=== PATIENT | female | born 1970 | race Caucasian/White ===

== ENCOUNTER 2020-12-24 14:32 | Observation (INO) | payer MEDICARE, OTHER ==
[2020-12-24] MEDS ORDERED: Romazicon 0.5 MG/5 ML Injection IV ONE ×3 (14:55→15:47)
[2020-12-24] MEDS ORDERED: Zofran 4 MG/2 ML VIAL IV ONE (14:55)
--- NOTE | 2020-12-24 14:55 | ERPHSYRPT ---
- History of Present Illness Time Seen by Provider: 12/24/20 14:40 Source: EMS Exam Limitations: clinical condition, intoxication Physician History: This 50-year-old white female arrives via EMS after family was found the patient unresponsive but breathing on her own. It is unclear to them whether or not the patient had an accidental or intentional overdose presumably of her Xanax. Patient arrives breathing on her own but unresponsive. Her room air oxygen level is 90%. She was then placed on 4 L oxygen via nasal cannula and her room air oxygen level was 98%. Her blood pressure had a systolic blood pressure of approximately 109. Her heart rate was in the 80s and a normal sinus rhythm. There was no other history obtainable at the time of this evaluation/ex amination. Timing/Duration: today Severity of Symptoms-Max: moderate Severity of Symptoms-Current: moderate Context related to: other (Unclear) Suicidal thoughts: other (Unclear) Associated Symptoms: ingestion Previous symptoms: other (Unclear) Allergies/Adverse Reactions: Penicillins Allergy (Verified 12/24/20 15:15) Home Medications: Alprazolam [Xanax] 0.25 ea BID 12/24/20 [History] Atorvastatin Calcium 1 ea DAILY 12/24/20 [History] Omeprazole Magnesium [Prilosec Otc] 20 mg PO DAILY 12/24/20 [History] Pregabalin [Lyrica 150Mg] 150 mg BID 12/24/20 [History] Umeclidinium Brm/Vilanterol Tr [Anoro Ellipta 62.5-25 Mcg INH] 1 ea DAILY 12/24/20 [History] Travel Risk - International Travel Have you traveled outside of the country in past 3 weeks: No - Coronavirus Screening Are you exhibiting any of the following symptoms?: No Close contact with a COVID-19 positive Pt in past 14-21 Days: No - Past Medical History Pertinent Past Medical History: Yes Neurological History: Peripheral Neuropathy Cardiac History: No Pertinent History Respiratory History: COPD, Emphysema Endocrine Medical History: No Pertinent History Musculoskeletal History: No Pertinent History Psycho-Social History: Depression Other Medical History: dx with neuropathy after being D/C from hospital, she was put on lyrica. Decreased balance and dizziness. Depth perception decrease. - Past Surgical History Past Surgical History: No - Social History Drug Use: none - Review of Systems Constitutional: No Symptoms Eyes: No Symptoms Ears, Nose, & Throat: No Symptoms Respiratory: No Symptoms Cardiac: No Symptoms Abdominal/Gastrointestinal: No Symptoms Genitourinary Symptoms: No Symptoms Musculoskeletal: No Symptoms Skin: No Symptoms Neurological: No Symptoms Psychological: No Symptoms Endocrine: No Symptoms Hematologic/Lymphatic: No Symptoms Immunological/Allergic: No Symptoms All Other Systems: Reviewed and Negative - Nursing Vital Signs Nursing Vital Signs: Initial Vital Signs Temperature 96.8 F 12/24/20 14:36 Pulse Rate 89 12/24/20 14:36 Respiratory Rate 10 L 12/24/20 14:36 Blood Pressure 109/71 12/24/20 14:36 O2 Sat by Pulse Oximetry 97 12/24/20 14:36 Pain Scale Pain Intensity 0 - Physical Exam General Appearance: lethargy, other (Unresponsive) Eyes, Ears, Nose, Throat Exam: normal ENT inspection, moist mucous membranes Neck Exam: normal inspection, non-tender, supple, full range of motion Respiratory Exam: normal breath sounds, lungs clear, airway intact, No chest tenderness, No respiratory distress Cardiovascular Exam: regular rate/rhythm, normal heart sounds, normal peripheral pulses Gastrointestinal/Abdominal Exam: soft, normal bowel sounds, No tenderness Extremities Exam: normal inspection Current Suicidality: other (Patient is unresponsive) Behavior/Eye Contact/Speech: intoxicated appearance Skin Exam: normal color, warm, dry SpO2 Interpretation: normal SpO2: 97 O2 Delivery: Nasal Cannula (4 L O2) - Course Nursing assessment & vital signs reviewed: Yes EKG Interpreted by Me: RATE (91), Sinus Rhythm, NORMAL AXIS, NORMAL INTERVALS, NORMAL QRS, NORMAL ST-T, Other (No acute ischemic changes.) Ordered Tests: Active Orders 24 hr Category Date Time Status Catheter-Bulger Goff STAT Care 12/24/20 14:55 Active EKG-ER Only STAT Care 12/24/20 14:55 Active IV Insertion STAT Care 12/24/20 15:04 Active IV Insertion-2nd Peripheral STAT Care 12/24/20 15:04 Active Pulse Oximetry (ED) STAT Care 12/24/20 14:55 Active HEAD WITHOUT CONTRAST [CT] Stat Exams 12/24/20 14:56 Completed ACETAMINOPHEN Stat Lab 12/24/20 14:40 Completed CBC W DIFF Stat Lab 12/24/20 14:40 Completed CMP Stat Lab 12/24/20 14:40 Completed CULTURE,URINE Stat Lab 12/24/20 15:02 Received ETHYL ALCOHOL Stat Lab 12/24/20 14:40 Completed Lactic Acid Stat Lab 12/24/20 14:53 Completed SALICYLATE Stat Lab 12/24/20 14:40 Completed UA W/RFX UR CULTURE Stat Lab 12/24/20 15:02 Completed Urine Triage Profile Stat Lab 12/24/20 15:02 Completed Transfer Order Routine Transfer 12/24/20 Ordered Medication Summary Discontinued Medications Generic Name Dose Route Start Last Admin Trade Name Emelyn PRN Reason Stop Dose Admin Flumazenil 0.2 mg 12/24/20 14:55 12/24/20 14:38 Flumazenil 0.5 Mg/5 Ml Vial IV 12/24/20 14:56 0.2 mg STAT ONE Administration Flumazenil 0.3 mg 12/24/20 14:57 12/24/20 14:41 Flumazenil 0.5 Mg/5 Ml Vial IV 12/24/20 14:58 0.3 mg STAT ONE Administration Flumazenil Confirm 12/24/20 15:39 Flumazenil 0.5 Mg/5 Ml Vial Administered 12/24/20 15:40 Dose 0.1 mg .ROUTE .STK-MED ONE Flumazenil 0.5 mg 12/24/20 15:47 12/24/20 15:49 Flumazenil 0.5 Mg/5 Ml Vial IV 12/24/20 15:48 0.5 mg STAT ONE Administration Ondansetron HCl 4 mg 12/24/20 14:55 12/24/20 15:25 Ondansetron Hcl 4 Mg/2 Ml Vial IV 12/24/20 14:56 4 mg STAT ONE Administration Ondansetron HCl Confirm 12/24/20 15:23 Ondansetron Hcl 4 Mg/2 Ml Vial Administered 12/24/20 15:24 Dose 4 mg .ROUTE .STK-MED ONE Lab/Rad Data: Laboratory Result Diagrams 12/24/20 14:40 12/24/20 14:40 Laboratory Results 12/24/20 12/24/20 12/24/20 Range/Units 15:02 15:02 14:53 WBC (4.0-10.5) K/mm3 RBC (4.1-5.4) M/mm3 Hgb (12.0-16.0) gm/dl Hct (35-47) % MCV (78-100) fl MCH (26-32) pg MCHC (32-36) g/dl RDW (11.5-14.0) % Plt Count (150-450) K/mm3 MPV (7.5-11.0) fl Gran % (36.0-66.0) % Eos # (Auto) (0-0.5) Absolute Lymphs (auto) (1.0-4.6) Absolute Monos (auto) (0.0-1.3) Lymphocytes % (24.0-44.0) % Monocytes % (0.0-12.0) % Eosinophils % (0.00-5.0) % Basophils % (0.0-0.4) % Absolute Granulocytes (1.4-6.9) Basophils # (0-0.4) Sodium (137-145) mmol/L Potassium (3.5-5.1) mmol/L Chloride (98-107) mmol/L Carbon Dioxide (22-30) mmol/L Anion Gap (5-15) MEQ/L BUN (7-17) mg/dL Creatinine (0.52-1.04) mg/dL Estimated GFR ML/MIN Glucose (74-106) mg/dL Lactic Acid 1.8 (0.4-2.0) Calcium (8.4-10.2) mg/dL Total Bilirubin (0.2-1.3) mg/dL AST (14-36) U/L ALT (0-35) U/L Alkaline Phosphatase (38-126) U/L Serum Total Protein (6.3-8.2) g/dL Albumin (3.5-5.0) g/dL Urine Color STRAW (YELLOW) Urine Appearance CLEAR (CLEAR) Urine pH 6.0 (5-6) Ur Specific [place] 1.003 (1.005-1.025) Urine Protein NEGATIVE (Negative) Urine Ketones NEGATIVE (NEGATIVE) Urine Blood MODERATE (0-5) Vladimir/ul Urine Nitrite NEGATIVE (NEGATIVE) Urine Bilirubin NEGATIVE (NEGATIVE) Urine Urobilinogen NEGATIVE (0-1) mg/dL Ur Leukocyte Esterase NEGATIVE (NEGATIVE) Urine WBC (Auto) NONE (0-5) /HPF Urine RBC (Auto) 0-2 (0-2) /HPF U Epithel Cells (Auto) RARE (FEW) /HPF Urine Bacteria (Auto) RARE (NEGATIVE) /HPF Urine Mucus (Auto) SLIGHT (NEGATIVE) /HPF Urine Culture Reflexed ORDERED SEPARATELY (NO) Urine Glucose NEGATIVE (NEGATIVE) mg/dL Salicylates (2-20) mg/dL Urine Opiates Level NEGATIVE (NEGATIVE) Ur Methadone NEGATIVE (NEGATIVE) Acetaminophen (10-30) ug/ml Urine Barbiturates NEGATIVE (NEGATIVE) Ur Phencyclidine (PCP) NEGATIVE (NEGATIVE) Urine Amphetamine NEGATIVE (NEGATIVE) U Benzodiazepine Level POSITIVE (NEGATIVE) Urine Cocaine NEGATIVE (NEGATIVE) Urine Marijuana (THC) NEGATIVE (NEGATIVE) Ethyl Alcohol (0-10) mg/dL 12/24/20 12/24/20 Range/Units 14:40 14:40 WBC 6.1 (4.0-10.5) K/mm3 RBC 4.71 (4.1-5.4) M/mm3 Hgb 14.5 (12.0-16.0) gm/dl Hct 44.4 (35-47) % MCV 94.3 (78-100) fl MCH 30.8 (26-32) pg MCHC 32.7 (32-36) g/dl RDW 12.6 (11.5-14.0) % Plt Count 179 (150-450) K/mm3 MPV 11.0 (7.5-11.0) fl Gran % 67.0 H (36.0-66.0) % Eos # (Auto) 0.05 (0-0.5) Absolute Lymphs (auto) 1.50 (1.0-4.6) Absolute Monos (auto) 0.44 (0.0-1.3) Lymphocytes % 24.7 (24.0-44.0) % Monocytes % 7.2 (0.0-12.0) % Eosinophils % 0.8 (0.00-5.0) % Basophils % 0.3 (0.0-0.4) % Absolute Granulocytes 4.06 (1.4-6.9) Basophils # 0.02 (0-0.4) Sodium 134 L (137-145) mmol/L Potassium 3.6 (3.5-5.1) mmol/L Chloride 94 L (98-107) mmol/L Carbon Dioxide 30 (22-30) mmol/L Anion Gap 13.2 (5-15) MEQ/L BUN 3 L (7-17) mg/dL Creatinine 0.67 (0.52-1.04) mg/dL Estimated GFR > 60.0 ML/MIN Glucose 83 (74-106) mg/dL Lactic Acid (0.4-2.0) Calcium 9.1 (8.4-10.2) mg/dL Total Bilirubin 0.40 (0.2-1.3) mg/dL AST 29 (14-36) U/L ALT 10 (0-35) U/L Alkaline Phosphatase 62 (38-126) U/L Serum Total Protein 6.8 (6.3-8.2) g/dL Albumin 4.1 (3.5-5.0) g/dL Urine Color (YELLOW) Urine Appearance (CLEAR) Urine pH (5-6) Ur Specific [place] (1.005-1.025) Urine Protein (Negative) Urine Ketones (NEGATIVE) Urine Blood (0-5) Vladimir/ul Urine Nitrite (NEGATIVE) Urine Bilirubin (NEGATIVE) Urine Urobilinogen (0-1) mg/dL Ur Leukocyte Esterase (NEGATIVE) Urine WBC (Auto) (0-5) /HPF Urine RBC (Auto) (0-2) /HPF U Epithel Cells (Auto) (FEW) /HPF Urine Bacteria (Auto) (NEGATIVE) /HPF Urine Mucus (Auto) (NEGATIVE) /HPF Urine Culture Reflexed (NO) Urine Glucose (NEGATIVE) mg/dL Salicylates < 1.0 L (2-20) mg/dL Urine Opiates Level (NEGATIVE) Ur Methadone (NEGATIVE) Acetaminophen < 10 L (10-30) ug/ml Urine Barbiturates (NEGATIVE) Ur Phencyclidine (PCP) (NEGATIVE) Urine Amphetamine (NEGATIVE) U Benzodiazepine Level (NEGATIVE) Urine Cocaine (NEGATIVE) Urine Marijuana (THC) (NEGATIVE) Ethyl Alcohol 33 H (0-10) mg/dL - Progress Progress: improved, re-examined Progress Note: 12/24/20 15:35 After the Romazicon reversal, the patient is now more awake and alert and able to answer questions. She did not intentionally overdose. She thinks she may have taken her Xanax to close to her Lyrica medication. She denies chest pain. She has no shortness of breath. She has no abdominal pain. 12/24/20 17:02 ct head without contrast-nl ct head Discussed with : Gala Counseled pt/family regarding: lab results, diagnosis, need for follow-up, rad results - Departure Departure Disposition: In-patient Admission Clinical Impression: Altered mental status, Lethargy Condition: Fair Critical Care Time: Yes Critical Care Time(excluding separately billable procedures): Critical 30-74 mins (31 minutes) Referrals: YAA GALLEGOS MD [Primary Care Provider] - Follow up/PCP as directed
[2020-12-24 15:03] LABS: Absolute Neutrophil Ct (ANC) 4.06 (1.4-6.9); BASOPHIL % 0.3 % (0.0-0.4); Basophil (Absolute #) 0.02 (0-0.4); Eosinophil % 0.8 % (0.00-5.0); Eosinophil (Absolute #) 0.05 (0-0.5); Hematocrit 44.4 % (35-47); Hemoglobin 14.5 gm/dl (12.0-16.0); Lymphocytes % 24.7 % (24.0-44.0); Mean Cell Volume 94.3 fl (78-100); Mean Corpuscular Hemoglobin 30.8 pg (26-32); Mean Corpuscular Hgb Concent. 32.7 g/dl (32-36); Monocyte (Absolute #) 0.44 (0.0-1.3); Monocytes % 7.2 % (0.0-12.0); Platelet Count 179 K/mm3 (150-450); Red Blood Count 4.71 M/mm3 (4.1-5.4); Red Cell Distribution Width 12.6 % (11.5-14.0); White Blood Count 6.1 K/mm3 (4.0-10.5)
[2020-12-24 15:09] LABS: Appearance CLEAR (CLEAR); Bacteria RARE /HPF (NEGATIVE); Bilirubin NEGATIVE (NEGATIVE); Blood MODERATE Ery/ul (0-5); Epithelial Cells RARE /HPF (FEW); Glucose NEGATIVE (NEGATIVE); Ketones NEGATIVE (NEGATIVE); Leukocyte Esterase NEGATIVE (NEGATIVE); Mucus SLIGHT /HPF (NEGATIVE); Nitrite NEGATIVE (NEGATIVE); Protein,Urine Dip NEGATIVE (Negative); RBC 0-2 /HPF (0-2); Specific Gravity 1.003 (1.005-1.025); Urobilinogen NEGATIVE mg/dL (0-1)
[2020-12-24] MEDS ORDERED: Zofran 4 MG/2 ML VIAL ONE (15:23)
[2020-12-24 15:34] LABS: ACETAMINOPHEN < 10 ug/ml (10-30); ALBUMIN 4.1 g/dL (3.5-5.0); ALKALINE PHOSPHATASE 62 U/L (38-126); ANION GAP 13.2 MEQ/L (5-15); BLOOD UREA NITROGEN 3 mg/dL (7-17); CHLORIDE 94 mmol/L (98-107); Calcium 9.1 mg/dL (8.4-10.2); Carbon Dioxide 30 mmol/L (22-30); Creatinine 1 0.67 mg/dL (0.52-1.04); EST GLOMERULAR FILTRATION RATE > 60.0 ML/MIN; ETHYL ALCOHOL 33 mg/dL (0-10); Glucose 83 mg/dL (74-106); Potassium 3.6 mmol/L (3.5-5.1); SALICYLATE < 1.0 mg/dL (2-20); SGOT/AST 29 U/L (14-36); SGPT/ALT 10 U/L (0-35); SODIUM 134 mmol/L (137-145); Total Protein 6.8 g/dL (6.3-8.2)
[2020-12-24] MEDS ORDERED: Romazicon 0.5 MG/5 ML Injection ONE (15:39)
[2020-12-24 15:46] LABS: Amphetamine,Urine NEGATIVE (NEGATIVE); Barbiturate,Urine NEGATIVE (NEGATIVE); Benzodiazepine,Urine POSITIVE (NEGATIVE); Cocaine,Urine NEGATIVE (NEGATIVE); Methadone,Urine NEGATIVE (NEGATIVE); Opiate,Urine NEGATIVE (NEGATIVE); PCP,Urine NEGATIVE (NEGATIVE)
[2020-12-24 15:50] LABS: THC,Urine NEGATIVE (NEGATIVE)
--- NOTE | 2020-12-24 16:26 | XRAY ---
Indication: Altered mental status. Overdose. Multiple contiguous axial images obtained through the head without contrast. Comparison: None Normal appearing brain parenchyma, ventricles, and bony calvarium for patient's age. Visualized paranasal sinuses and mastoid air cells are clear. Impression: Normal CT head without contrast exam.
[2020-12-24] MEDS ORDERED: PROTONIX 40 MG IV IV SCH (22:17)
[2020-12-24] MEDS ORDERED: Zofran 4 MG/2 ML VIAL IV PRN (22:17)
[2020-12-24] MEDS ORDERED: FEVERALL 650 MG PR PRN (22:17)
[2020-12-24] MEDS: Dextrose 5% -0.45 NaCl 1000 ML 1,000 ML IV SCH (22:49)
[2020-12-25 05:50] LABS: Absolute Neutrophil Ct (ANC) 7.19 (1.4-6.9); BASOPHIL % 0.2 % (0.0-0.4); Basophil (Absolute #) 0.02 (0-0.4); Eosinophil % 0.6 % (0.00-5.0); Eosinophil (Absolute #) 0.05 (0-0.5); Hematocrit 47.2 % (35-47); Hemoglobin 14.8 gm/dl (12.0-16.0); Lymphocyte (Absolute #) 1.05 (1.0-4.6); Lymphocytes % 11.7 % (24.0-44.0); Mean Cell Volume 97.1 fl (78-100); Mean Corpuscular Hemoglobin 30.5 pg (26-32); Mean Corpuscular Hgb Concent. 31.4 g/dl (32-36); Mean Platelet Volume 10.9 fl (7.5-11.0); Monocyte (Absolute #) 0.69 (0.0-1.3); Monocytes % 7.7 % (0.0-12.0); Neutrophil % 79.8 % (36.0-66.0); Platelet Count 184 K/mm3 (150-450); Red Blood Count 4.86 M/mm3 (4.1-5.4); Red Cell Distribution Width 13.1 % (11.5-14.0)
[2020-12-25 06:10] LABS: ALKALINE PHOSPHATASE 63 U/L (38-126); ANION GAP 11.2 MEQ/L (5-15); BLOOD UREA NITROGEN 3 mg/dL (7-17); CHLORIDE 98 mmol/L (98-107); Calcium 9.1 mg/dL (8.4-10.2); Carbon Dioxide 33 mmol/L (22-30); Creatinine 1 0.73 mg/dL (0.52-1.04); EST GLOMERULAR FILTRATION RATE > 60.0 ML/MIN; Glucose 100 mg/dL (74-106); Potassium 4.5 mmol/L (3.5-5.1); SGOT/AST 27 U/L (14-36); SGPT/ALT 12 U/L (0-35); SODIUM 137 mmol/L (137-145); Total Protein 6.9 g/dL (6.3-8.2)
[2020-12-25] MEDS: Dextrose 5% -0.45 NaCl 1000 ML 1,000 ML IV SCH ×2 (08:22→18:28)
[2020-12-25] MEDS ORDERED: MEDICATION INTERVENTION MC SCH (13:15)
[2020-12-25] MEDS: Protonix 40MG Tablet PO SCH (21:20)
--- NOTE | 2020-12-25 21:37 | PCM.HP ---
History of Present Illness - Chief Complaint Chief Complaint: AMS, LETHARGY History of Present Illness: is a 50 year old female.family was found the patient unresponsive but breathing on her own. It is unclear to them whether or not the patient had an accidental or intentional overdose presumably of her Xanax. Patient arrives breathing on her own but unresponsive. Her room air oxygen level is 90%. She was then placed on 4 L oxygen via nasal cannula and her room air oxygen level was 98%. Her blood pressure had a systolic blood pressure of approximately 109. Her heart rate was in the 80s and a normal sinus rhythm. There was no other history obtainable at the time of this evaluation/examination. - Review of Systems Constitutional: Lethargy Eyes: No Symptoms Ears, Nose, & Throat: No Symptoms Respiratory: No Symptoms Cardiac: No Symptoms Abdominal/Gastrointestinal: No Symptoms Genitourinary Symptoms: No Symptoms Neurological: Lethargy All Other Systems: Unable due to condition Medications & Allergies Home Medications: Home Medication List Alprazolam [Xanax] 0.25 ea BID 12/24/20 [History Confirmed 12/24/20] Atorvastatin Calcium 1 ea DAILY 12/24/20 [History Confirmed 12/24/20] Omeprazole Magnesium [Prilosec Otc] 20 mg PO DAILY 12/24/20 [History Confirmed 12/24/20] Pregabalin [Lyrica 150Mg] 150 mg BID 12/24/20 [History Confirmed 12/24/20] Umeclidinium Brm/Vilanterol Tr [Anoro Ellipta 62.5-25 Mcg INH] 1 ea DAILY 12/24/20 [History Confirmed 12/24/20] Allergies/Adverse Reactions: Allergies Allergy/AdvReac Type Severity Reaction Status Date / Time Penicillins Allergy Verified 12/24/20 15:15 - Past Medical History Past Medical History: Yes Neurological History: Peripheral Neuropathy Cardiac History: No Pertinent History Respiratory History: COPD, Emphysema Endocrine Medical History: No Pertinent History Musculoskelatal History: No Pertinent History Pyscho-Social History: Depression Comment: dx with neuropathy after being D/C from hospital, she was put on lyrica. Decreased balance and dizziness. Depth perception decrease. - Female History Hx Last Menstrual Period: unknown - Past Surgical History Past Surgical History: No - Social History Smoking Status: Unknown if ever smoked Exposure to second hand smoke: Yes Alcohol: None Drug Use: none - Physical Exam Vital Signs: Vital Signs - 24 hr Temp Pulse Resp BP Pulse Ox 12/25/20 20:00 99.0 F 91 H 23 108/69 96 12/25/20 19:05 92 L 12/25/20 16:00 98.6 F 91 H 25 H 121/85 96 12/25/20 15:44 100 H 12/25/20 12:00 97 H 12/25/20 11:55 98.0 F 99 H 16 122/87 98 12/25/20 08:00 88 12/25/20 07:59 97.7 F 92 H 21 109/77 92 L 12/25/20 04:00 97.4 F 90 23 109/78 100 12/25/20 03:42 89 12/25/20 00:19 97.7 F 83 20 104/77 99 12/24/20 23:08 81 20 100 12/24/20 23:00 79 20 111/83 100 12/24/20 22:17 97.4 F 81 19 123/97 96 General Appearance: moderate distress Neurologic Exam: disoriented Eye Exam: PERRL/EOMI Ears, Nose, Throat Exam: normal ENT inspection Respiratory Exam: normal breath sounds Cardiovascular Exam: regular rate/rhythm Gastrointestinal/Abdomen Exam: soft Back Exam: normal inspection Extremity Exam: normal inspection Skin Exam: normal color Results - Labs Lab/Micro Results: Lab Results-Last 24 Hours 12/25/20 12/25/20 Range/Units 04:27 04:27 WBC 9.0 (4.0-10.5) K/mm3 RBC 4.86 (4.1-5.4) M/mm3 Hgb 14.8 (12.0-16.0) gm/dl Hct 47.2 H (35-47) % MCV 97.1 (78-100) fl MCH 30.5 (26-32) pg MCHC 31.4 L (32-36) g/dl RDW 13.1 (11.5-14.0) % Plt Count 184 (150-450) K/mm3 MPV 10.9 (7.5-11.0) fl Gran % 79.8 H (36.0-66.0) % Eos # (Auto) 0.05 (0-0.5) Absolute Lymphs (auto) 1.05 (1.0-4.6) Absolute Monos (auto) 0.69 (0.0-1.3) Lymphocytes % 11.7 L (24.0-44.0) % Monocytes % 7.7 (0.0-12.0) % Eosinophils % 0.6 (0.00-5.0) % Basophils % 0.2 (0.0-0.4) % Absolute Granulocytes 7.19 H (1.4-6.9) Basophils # 0.02 (0-0.4) Sodium 137 (137-145) mmol/L Potassium 4.5 D (3.5-5.1) mmol/L Chloride 98 (98-107) mmol/L Carbon Dioxide 33 H (22-30) mmol/L Anion Gap 11.2 (5-15) MEQ/L BUN 3 L (7-17) mg/dL Creatinine 0.73 (0.52-1.04) mg/dL Estimated GFR > 60.0 ML/MIN Glucose 100 (74-106) mg/dL Calcium 9.1 (8.4-10.2) mg/dL Total Bilirubin 0.50 (0.2-1.3) mg/dL AST 27 (14-36) U/L ALT 12 (0-35) U/L Alkaline Phosphatase 63 (38-126) U/L Serum Total Protein 6.9 (6.3-8.2) g/dL Albumin 4.0 (3.5-5.0) g/dL Microbiology 12/24/20 15:02 Urine Culture - Preliminary Catherized NO GROWTH TO DATE - Radiology Impressions Radiology Exams & Impressions: Radiology Procedures Category Date Time Status HEAD WITHOUT CONTRAST [CT] Stat Exams 12/24/20 14:56 Completed - Other Procedures and Tests Respiratory Therapy 12/24/20 22:17 Oxygen Nasal Cannula 2 lpm 12/24/20 23:08 Respiratory Therapy Assessment DAILY Assessment/Plan (1) Harmful use of anxiolytic Current Visit: Yes Status: Acute Assessment & Plan: Chief Complaint Diagnosis AMS, LETHARGY Allergies Allergy/AdvReac Type Severity Reaction Status Date / Time Penicillins Allergy Verified 12/24/20 15:15 Vital Signs (Last 24 hours) Temp Pulse Resp BP Pulse Ox 12/25/20 20:00 99.0 F 91 H 23 108/69 96 12/25/20 19:05 92 L 12/25/20 16:00 98.6 F 91 H 25 H 121/85 96 12/25/20 15:44 100 H 12/25/20 12:00 97 H 12/25/20 11:55 98.0 F 99 H 16 122/87 98 12/25/20 08:00 88 12/25/20 07:59 97.7 F 92 H 21 109/77 92 L 12/25/20 04:00 97.4 F 90 23 109/78 100 12/25/20 03:42 89 12/25/20 00:19 97.7 F 83 20 104/77 99 12/24/20 23:08 81 20 100 12/24/20 23:00 79 20 111/83 100 12/24/20 22:17 97.4 F 81 19 123/97 96 Home Medications Medication Instructions Recorded Confirmed Last Taken Type Alprazolam [Xanax] 0.25 ea BID 12/24/20 12/24/20 Unknown History Atorvastatin Calcium 1 ea DAILY 12/24/20 12/24/20 Unknown History Omeprazole Magnesium [Prilosec Otc] 20 mg PO DAILY 12/24/20 12/24/20 Unknown History Pregabalin [Lyrica 150Mg] 150 mg BID 12/24/20 12/24/20 Unknown History Umeclidinium Brm/Vilanterol Tr 1 ea DAILY 12/24/20 12/24/20 Unknown History [Anoro Ellipta 62.5-25 Mcg INH] Current Medications Generic Name Dose Route Start Last Admin Trade Name Freq PRN Reason Stop Dose Admin Acetaminophen 650 mg 12/24/20 22:17 Acetaminophen 650 Mg Supp.Rect ME 01/23/21 22:16 Q4H PRN PRN PAIN AND/OR FEVER Dextrose/Sodium Chloride 1,000 mls @ 100 mls/hr 12/24/20 22:17 12/25/20 18:28 Dextrose 5% -0.45 Nacl 1000 Ml IV 01/23/21 22:16 100 mls/hr .Q10H OZZY Administration Miscellaneous Information 1 each 12/25/20 13:15 Medication Intervention 1 Each Each 01/24/21 13:14 .RN TO CHECK OZZY Ondansetron HCl 4 mg 12/24/20 22:17 Ondansetron Hcl 4 Mg/2 Ml Vial IV 01/23/21 22:16 Q6H PRN PRN NAUSEA/VOMITING Pantoprazole Sodium 40 mg 12/25/20 22:00 12/25/20 21:20 Protonix (Pantoprazole) 40 Mg Tablet PO 01/24/21 21:59 40 mg HS OZZY Administration Simvastatin 10 mg 12/26/20 10:00 Simvastatin 10 Mg Tablet PO 01/25/21 09:59 DAILY OZZY Discontinued Medications Generic Name Dose Route Start Last Admin Trade Name Emelyn PRN Reason Stop Dose Admin Flumazenil 0.2 mg 12/24/20 14:55 12/24/20 14:38 Flumazenil 0.5 Mg/5 Ml Vial IV 12/24/20 14:56 0.2 mg STAT ONE Administration Flumazenil 0.3 mg 12/24/20 14:57 12/24/20 14:41 Flumazenil 0.5 Mg/5 Ml Vial IV 12/24/20 14:58 0.3 mg STAT ONE Administration Flumazenil Confirm 12/24/20 15:39 Flumazenil 0.5 Mg/5 Ml Vial Administered 12/24/20 15:40 Dose 0.1 mg .ROUTE .STK-MED ONE Flumazenil 0.5 mg 12/24/20 15:47 12/24/20 15:49 Flumazenil 0.5 Mg/5 Ml Vial IV 12/24/20 15:48 0.5 mg STAT ONE Administration Ondansetron HCl 4 mg 12/24/20 14:55 12/24/20 15:25 Ondansetron Hcl 4 Mg/2 Ml Vial IV 12/24/20 14:56 4 mg STAT ONE Administration Ondansetron HCl Confirm 12/24/20 15:23 Ondansetron Hcl 4 Mg/2 Ml Vial Administered 12/24/20 15:24 Dose 4 mg .ROUTE .STK-MED ONE Pantoprazole Sodium 40 mg 12/24/20 22:17 12/24/20 22:49 Pantoprazole 40 Mg Vial IV 01/23/21 22:16 40 mg Q24H OZZY Administration Intake & Output (Last 24 hours) 12/23/20 12/24/20 12/25/20 12/26/20 11:59 11:59 11:59 11:59 Intake Total 576 1189 Output Total 2500 1000 Balance -1924 189 Weight 58.1 kg Microbiology Results (Last 24 hours) 12/24/20 15:02 Catherized Urine Culture - Preliminary NO GROWTH TO DATE Laboratory Results (Last 24 hours) 12/25/20 12/25/20 04:27 04:27 WBC 9.0 RBC 4.86 Hgb 14.8 Hct 47.2 H MCV 97.1 MCH 30.5 MCHC 31.4 L RDW 13.1 Plt Count 184 MPV 10.9 Gran % 79.8 H Eos # (Auto) 0.05 Absolute Lymphs (auto) 1.05 Absolute Monos (auto) 0.69 Lymphocytes % 11.7 L Monocytes % 7.7 Eosinophils % 0.6 Basophils % 0.2 Absolute Granulocytes 7.19 H Basophils # 0.02 Sodium 137 Potassium 4.5 D Chloride 98 Carbon Dioxide 33 H Anion Gap 11.2 BUN 3 L Creatinine 0.73 Estimated GFR > 60.0 Glucose 100 Calcium 9.1 Total Bilirubin 0.50 AST 27 ALT 12 Alkaline Phosphatase 63 Serum Total Protein 6.9 Albumin 4.0 Orders (Last 24 hours) Category Date Time Status Admit as Inpatient ROUTINE Care 12/24/20 22:17 Completed Code Status Order ROUTINE Care 12/24/20 22:17 Active Elevate HOB ROUTINE Care 12/24/20 22:17 Active Observation [Place in Observation] ROUTINE Care 12/24/20 22:16 Active Telemetry q4h Care 12/24/20 22:17 Active Weight,Daily 0600 Care 12/24/20 22:17 Active ConsultChencho [Psychiatric Consult] STAT Cons 12/25/20 09:07 Active Infection Control Consult ROUTINE Cons 12/25/20 00:17 Completed CBC W DIFF AM.LAB Lab 12/25/20 04:27 Completed CMP AM.LAB Lab 12/25/20 04:27 Completed Acetaminophen 650 mg [Feverall 650 mg] Med 12/24/20 22:17 Active 650 mg ME Q4H PRN PRN D5w-0.45 NaCl 1000 ml [Dextrose 5% -0.45 NaCl 1000 ML] Med 12/24/20 22:17 Active 1,000 ml IV 100 mls/hr Medication Intervention Med 12/25/20 13:15 Active 1 each MC .RN TO CHECK Ondansetron HCl 4 mg/2 ml [Zofran 4 MG/2 ML VIAL] Med 12/24/20 22:17 Active 4 mg IV Q6H PRN PRN PANTOPRAZOLE 40 mg Tablet [Protonix 40MG Tablet] Med 12/25/20 22:00 Active 40 mg PO HS Pantoprazole 40 mg [Protonix 40 mg IV] Med 12/24/20 22:17 Discontinued 40 mg IV Q24H Simvastatin 10 mg [Zocor 10MG] Med 12/26/20 10:00 Active 10 mg PO DAILY EKG REPEAT IN AM RT 12/24/20 22:17 Completed Oxygen Nasal Cannula 2 lpm RT 12/24/20 22:17 Active Pulse Oximetry .continuos RT 12/25/20 07:52 Active Respiratory Therapy Assessment DAILY RT 12/24/20 23:08 Active Respiratory Therapy Consult ROUTINE RT 12/24/20 22:17 Completed Patient Care Notes (Last 24 hours) 12/25/20 09:16 Nursing Note by Dilma Muñiz CALLED DR GALLEGOS'S ([facility]) OFFICE FOR ALL PATIENT'S RECORDS. Initialized on 12/25/20 09:16 - END OF NOTE Code(s): F13.10 - SEDATIVE, HYPNOTIC OR ANXIOLYTIC ABUSE, UNCOMPLICATED (2) Alcohol abuse Current Visit: Yes Status: Acute Code(s): F10.10 - ALCOHOL ABUSE, UNCOMPLICATED (3) Altered mental status Current Visit: Yes Status: Acute Code(s): R41.82 - ALTERED MENTAL STATUS, UNSPECIFIED
[2020-12-26] MEDS: Dextrose 5% -0.45 NaCl 1000 ML 1,000 ML IV SCH ×2 (04:31→17:02)
--- NOTE | 2020-12-26 07:04 | PCM.NOTE ---
Date and Time: 12/26/20700 Subjective Assessment: more alert today - Review of Systems Constitutional: No Fever, No Chills Eyes: No Symptoms Ears, Nose, & Throat: No Symptoms Respiratory: No Cough, No Short Of Breath Cardiac: No Chest Pain, No Edema, No Syncope Abdominal/Gastrointestinal: No Abdominal Pain, No Nausea, No Vomiting, No Diarrhea Genitourinary Symptoms: No Dysuria Musculoskeletal: No Back Pain, No Neck Pain Skin: No Rash Neurological: No Dizziness, No Focal Weakness, No Sensory Changes Psychological: No Symptoms Endocrine: No Symptoms Hematologic/Lymphatic: No Symptoms Immunological/Allergic: No Symptoms Objective Exam General Appearance: no apparent distress, alert Neurologic Exam: alert, oriented x 3, cooperative, normal mood/affect, nml cerebellar function, sensation nml, No motor deficits Skin Exam: normal color, warm, dry Eye Exam: PERRL, EOMI, eyes nml inspection Ears, Nose, Throat Exam: normal ENT inspection, pharynx normal, moist mucous membranes Neck Exam: normal inspection, non-tender, supple, full range of motion Respiratory Exam: normal breath sounds, lungs clear, No respiratory distress Cardiovascular Exam: regular rate/rhythm, normal heart sounds Gastrointestinal/Abdomen Exam: soft, No tenderness, No mass Extremity Exam: normal inspection, normal range of motion Back Exam: normal inspection, normal range of motion, No CVA tenderness, No vertebral tenderness Pelvic Exam: deferred Rectal Exam: deferred OBJECTIVE DATA Vital Signs: Vital Signs - 24 hr Temp Pulse Resp BP Pulse Ox 12/26/20 05:45 92 L 12/26/20 04:00 97.8 F 77 20 114/76 97 12/26/20 03:56 77 12/26/20 00:00 97.7 F 80 20 111/69 97 12/25/20 23:53 80 12/25/20 21:30 88 21 107/76 96 12/25/20 20:00 99.0 F 91 H 23 108/69 96 12/25/20 19:05 92 L 12/25/20 16:00 98.6 F 91 H 25 H 121/85 96 12/25/20 15:44 100 H 12/25/20 12:00 97 H 12/25/20 11:55 98.0 F 99 H 16 122/87 98 12/25/20 08:00 88 12/25/20 07:59 97.7 F 92 H 21 109/77 92 L Pain Assessment - Last Documented Pain Intensity 0 Intake and Output: Intake & Output 12/23/20 12/24/20 12/25/20 12/26/20 11:59 11:59 11:59 11:59 Intake Total 576 2399 Output Total 8862 3500 Balance -8144 -1101 Weight 58.1 kg 58.1 kg Radiology Exams: Radiology Procedures Category Date Time Status HEAD WITHOUT CONTRAST [CT] Stat Exams 12/24/20 14:56 Completed Assessment/Plan (1) Harmful use of anxiolytic Current Visit: Yes Status: Acute Assessment & Plan: more alert, doing better Code(s): F13.10 - SEDATIVE, HYPNOTIC OR ANXIOLYTIC ABUSE, UNCOMPLICATED (2) Alcohol abuse Current Visit: Yes Status: Ruled-out Code(s): F10.10 - ALCOHOL ABUSE, UNCOMPLICATED (3) Altered mental status Current Visit: Yes Status: Acute Qualifiers: Altered mental status type: somnolence Qualified Code(s): R40.0 - Somnolence Assessment & Plan: doing better Code(s): R41.82 - ALTERED MENTAL STATUS, UNSPECIFIED
[2020-12-26] MEDS ORDERED: NON-FORMULARY ITEM (Atorvastatin Calcium [Atorvastatin Calcium] 10 MG Tablet) PO SCH (10:00)
[2020-12-26] MEDS ORDERED: NON-FORMULARY ITEM (Omeprazole Magnesium [Prilosec Otc] 20 MG Tablet.Dr) PO SCH (10:00)
[2020-12-26] MEDS: Zocor 10MG PO SCH (10:17)
[2020-12-26] MEDS: LYRICA 150MG PO SCH ×2 (12:27→21:19)
[2020-12-26] MEDS: Protonix 40MG Tablet PO SCH (21:19)
[2020-12-27] MEDS: Dextrose 5% -0.45 NaCl 1000 ML 1,000 ML IV SCH (03:07)
--- NOTE | 2020-12-27 08:42 | PCM.DS ---
Discharge Summary Date of Admission: 12/24/20 22:16 Admitting Physician: YAA GALLEGOS Consults: Consults on Case 12/25/20 09:07 Consult,[place] [Psychiatric Consult] STAT Primary Care Provider: YAA GALLEGOS Allergies Allergies Penicillins Allergy (Verified 12/24/20 15:15) Hospital Summary - Hospital Course Hospital Course: Chief Complaint Diagnosis AMS, LETHARGY Allergies Allergy/AdvReac Type Severity Reaction Status Date / Time Penicillins Allergy Verified 12/24/20 15:15 Vital Signs (Last 24 hours) Temp Pulse Resp BP Pulse Ox 12/27/20 08:00 81 12/27/20 07:02 98.4 F 81 23 99/67 97 12/27/20 04:48 98.7 F 73 19 86/53 96 12/27/20 04:00 76 12/27/20 00:38 98.4 F 78 18 94/56 100 12/26/20 20:57 97.6 F 75 18 125/74 99 12/26/20 20:00 82 12/26/20 19:01 92 L 12/26/20 16:37 98.1 F 76 23 111/71 96 12/26/20 16:00 89 12/26/20 12:00 84 12/26/20 11:56 97.6 F 80 22 118/79 91 L 12/26/20 11:01 95 Home Medications Medication Instructions Recorded Confirmed Last Taken Type Alprazolam [Xanax] 0.25 ea BID 12/24/20 12/24/20 Unknown History Atorvastatin Calcium 1 ea DAILY 12/24/20 12/24/20 Unknown History Omeprazole Magnesium [Prilosec Otc] 20 mg PO DAILY 12/24/20 12/24/20 Unknown History Pregabalin [Lyrica 150Mg] 150 mg BID 12/24/20 12/24/20 Unknown History Umeclidinium Brm/Vilanterol Tr 1 ea DAILY 12/24/20 12/24/20 Unknown History [Anoro Ellipta 62.5-25 Mcg INH] Current Medications Generic Name Dose Route Start Last Admin Trade Name Freq PRN Reason Stop Dose Admin Acetaminophen 650 mg 12/24/20 22:17 12/27/20 05:58 Acetaminophen 650 Mg Supp.Rect CA 01/23/21 22:16 650 mg Q4H PRN PRN Administration PAIN AND/OR FEVER Dextrose/Sodium Chloride 1,000 mls @ 100 mls/hr 12/24/20 22:17 12/27/20 03:07 Dextrose 5% -0.45 Nacl 1000 Ml IV 01/23/21 22:16 100 mls/hr .Q10H OZZY Administration Miscellaneous Information 1 each 12/25/20 13:15 Medication Intervention 1 Each Each 01/24/21 13:14 .RN TO CHECK OZZY Ondansetron HCl 4 mg 12/24/20 22:17 Ondansetron Hcl 4 Mg/2 Ml Vial IV 01/23/21 22:16 Q6H PRN PRN NAUSEA/VOMITING Pantoprazole Sodium 40 mg 12/25/20 22:00 12/26/20 21:19 Protonix (Pantoprazole) 40 Mg Tablet PO 01/24/21 21:59 40 mg HS OZZY Administration Pregabalin 150 mg 12/26/20 12:12 12/26/20 21:19 Pregabalin 150 Mg Capsule PO 01/25/21 12:11 150 mg BID OZZY Administration Simvastatin 10 mg 12/26/20 10:00 12/26/20 10:17 Simvastatin 10 Mg Tablet PO 01/25/21 09:59 Not Given DAILY OZZY Discontinued Medications Generic Name Dose Route Start Last Admin Trade Name Garyq PRN Reason Stop Dose Admin Flumazenil 0.2 mg 12/24/20 14:55 12/24/20 14:38 Flumazenil 0.5 Mg/5 Ml Vial IV 12/24/20 14:56 0.2 mg STAT ONE Administration Flumazenil 0.3 mg 12/24/20 14:57 12/24/20 14:41 Flumazenil 0.5 Mg/5 Ml Vial IV 12/24/20 14:58 0.3 mg STAT ONE Administration Flumazenil Confirm 12/24/20 15:39 Flumazenil 0.5 Mg/5 Ml Vial Administered 12/24/20 15:40 Dose 0.1 mg .ROUTE .STK-MED ONE Flumazenil 0.5 mg 12/24/20 15:47 12/24/20 15:49 Flumazenil 0.5 Mg/5 Ml Vial IV 12/24/20 15:48 0.5 mg STAT ONE Administration Ondansetron HCl 4 mg 12/24/20 14:55 12/24/20 15:25 Ondansetron Hcl 4 Mg/2 Ml Vial IV 12/24/20 14:56 4 mg STAT ONE Administration Ondansetron HCl Confirm 12/24/20 15:23 Ondansetron Hcl 4 Mg/2 Ml Vial Administered 12/24/20 15:24 Dose 4 mg .ROUTE .STK-MED ONE Pantoprazole Sodium 40 mg 12/24/20 22:17 12/24/20 22:49 Pantoprazole 40 Mg Vial IV 01/23/21 22:16 40 mg Q24H OZZY Administration Intake & Output (Last 24 hours) 12/24/20 12/25/20 12/26/20 12/27/20 11:59 11:59 11:59 11:59 Intake Total 576 2399 2583 Output Total 2500 3500 1600 Balance -1924 -1101 983 Weight 58.1 kg 58.1 kg 61.9 kg Microbiology Results (Last 24 hours) 12/24/20 15:02 Catherized Urine Culture - Final NO GROWTH Orders (Last 24 hours) Category Date Time Status House Regular Diet Diet 12/26/20 Dinner Active Pregabalin [Lyrica 150Mg] Med 12/26/20 12:12 Active 150 mg PO BID Simvastatin 10 mg [Zocor 10MG] Med 12/26/20 10:00 Active 10 mg PO DAILY Patient Care Notes (Last 24 hours) 12/26/20 17:11 Nursing Note by Aminta Mccarthy Dr rounded on pt. Pt states she is still weak and feels very drowsy. Dr Gallegos stated pt should stay one more night and go home tomorrow. Initialized on 12/26/20 17:11 - END OF NOTE 12/26/20 15:29 Nursing Note by Dilma Muñiz [facility] [id number]. Initialized on 12/26/20 15:29 - END OF NOTE 12/26/20 11:51 Case Management Note by Alejandra Ni PATIENT A&O THIS AM- UNSURE WHY SHE IS HERE. SHE REPORTS SHE IS INDEPENDENT AT HOME WITH HER WALKER, LIVES WITH HER PARENTS. SHE DOES NOT ANTICIPATE ANY NEW NEEDS AT TIME OF DC. 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 PT WAS PLACED BACK ON 2LPM NASAL CANNULA AND O2 SAT INCREASED TO 92%. NURSE AWARE. Initialized on 12/26/20 11:49 - END OF NOTE 12/26/20 10:30 Respiratory Note by Prachi Lazar PT STATES SHE ONLY TAKES ANORA ELLIPTA PRN AT HOME. PT AWARE THAT WE DON'T HAVE ANORO AND WE HAVE TO SUBSTITUTE WITH [employer]ONE[employer] TREATMENTS. PT STATED SHE DOESN'T NEED AT THIS TIME. PT STATED SHE WOULD CALL IF THAT CHANGES. Initialized on 12/26/20 10:30 - END OF NOTE - Vitals & Intake/Output Vital Signs: Vital Signs Temperature 98.4 F 12/27/20 07:02 Pulse Rate 81 12/27/20 08:00 Respiratory Rate 23 12/27/20 07:02 Blood Pressure 99/67 12/27/20 07:02 O2 Sat by Pulse Oximetry 97 12/27/20 07:02 Intake & Output: Intake & Output 12/24/20 12/25/20 12/26/20 12/27/20 11:59 11:59 11:59 11:59 Intake Total 576 2399 2583 Output Total 2500 3500 1600 Balance -1924 -1101 983 Weight 58.1 kg 58.1 kg 61.9 kg - Lab Result Diagrams: 12/25/20 04:27 12/25/20 04:27 Micro Results-Entire Visit: Microbiology 12/24/20 15:02 Urine Culture - Final Catherized NO GROWTH - Procedures and Test Procedures and Tests throughout Hospitalization: Therapy Orders & Screens 12/24/20 22:17 EKG REPEAT IN AM Comment: Oxygen Nasal Cannula 2 lpm Comment: Respiratory Therapy Consult ROUTINE Comment: Reason For Exam: 12/24/20 23:08 Respiratory Therapy Assessment DAILY Comment: Discharge Exam General Appearance: no apparent distress, alert Neurologic Exam: alert, oriented x 3, cooperative, normal mood/affect, nml cerebellar function, sensation nml, No motor deficits Eye Exam: PERRL, EOMI, eyes nml inspection Ears, Nose, Throat Exam: normal ENT inspection, pharynx normal, moist mucous membranes Neck Exam: normal inspection, non-tender, supple, full range of motion Respiratory Exam: normal breath sounds, lungs clear, No respiratory distress Cardiovascular Exam: regular rate/rhythm, normal heart sounds Gastrointestinal/Abdomen Exam: soft, No tenderness, No mass Pelvic Exam: deferred Rectal Exam: deferred Back Exam: normal inspection, normal range of motion, No CVA tenderness, No vertebral tenderness Extremity Exam: normal inspection, normal range of motion Skin Exam: normal color, warm, dry Final Diagnosis/Problem List - Final Discharge Diagnosis/Problem (1) Harmful use of anxiolytic Current Visit: Yes Status: Acute Code(s): F13.10 - SEDATIVE, HYPNOTIC OR ANXIOLYTIC ABUSE, UNCOMPLICATED (2) Alcohol abuse Current Visit: Yes Status: Ruled-out Code(s): F10.10 - ALCOHOL ABUSE, UNCOMPLICATED (3) Altered mental status Current Visit: Yes Status: Acute Code(s): R41.82 - ALTERED MENTAL STATUS, UNSPECIFIED - Discharge Disposition: Home, Self-Care Condition: Fair Prescriptions: No Action Omeprazole Magnesium [Prilosec Otc] 20 mg PO DAILY Alprazolam [Xanax] 0.25 ea BID Atorvastatin Calcium 1 ea DAILY Pregabalin [Lyrica 150Mg] 150 mg BID Umeclidinium Brm/Vilanterol Tr [Anoro Ellipta 62.5-25 Mcg INH] 1 ea DAILY Follow up with: YAA GALLEGOS MD [Primary Care Provider] -
[2020-12-27] MEDS: Zocor 10MG PO SCH (11:01)
[2020-12-27] MEDS: LYRICA 150MG PO SCH (11:02)
== END 2020-12-27 14:10 | disposition home or self-care (01) ==
LOC: ED 14:32 → INTOOBSV 22:16 → ICU 22:16
PROVIDERS: ADMIT General Practice; ATTEND General Practice
DX: F13.10 Sedative, hypnotic or anxiolytic abuse, uncomplicated (principal); R41.82 Altered mental status, unspecified; R53.83 Other fatigue; F10.10 Alcohol abuse, uncomplicated; Z79.899 Other long term (current) drug therapy; Z20.828 Contact with and (suspected) exposure to other viral communicable diseases
CPT/HCPCS: 36000; 36415; 51702; 70450; 80053; 80307; 81001; 83605; 85025; 87086; 93005; 93041; 93268; 94760; 94762; 94770; 96374; 96375; 96376; 99285; 99291; G0378; G0480; U0003; J2405; A9270-GY